=== PATIENT | female | born 1945 | race Two or more races ===

== ENCOUNTER 2022-08-28 11:34 | Outpatient (CLI) | payer OTHER | END 2022-08-28 11:39 | disposition home or self-care (01) | LOC: LAB 11:34 | PROVIDERS: ATTEND Obstetrics & Gynecology Gynecologic Oncology | DX: D64.89 Other specified anemias (principal); Z01.818 Encounter for other preprocedural examination; Z20.822 Contact with and (suspected) exposure to COVID-19; I10 Essential (primary) hypertension; R79.89 Other specified abnormal findings of blood chemistry; N39.0 Urinary tract infection, site not specified ==

== ENCOUNTER 2022-08-31 06:30 | Day surgery (SDC) | payer OTHER ==
[~2022-08-31] VITALS: Ht 149.9 cm; Wt 85.7 kg
== END 2022-08-31 16:15 | disposition home or self-care (01) ==
LOC: CIR.AMB 06:30
PROVIDERS: ATTEND Obstetrics & Gynecology Gynecologic Oncology
DX: C51.0 Malignant neoplasm of labium majus (principal); N76.2 Acute vulvitis; Z88.0 Allergy status to penicillin; I10 Essential (primary) hypertension; Z20.822 Contact with and (suspected) exposure to COVID-19